=== PATIENT | male | born 1960 | race Asian ===

== ENCOUNTER 2017-08-22 06:00 | Day surgery (SDC) | payer MEDICAID ==
[~2017-08-22] VITALS: Ht 172.7 cm; Wt 90.3 kg
[~2017-08-22 06:00] MED LIST: AMLO5TAB4 PO; IBUP-2030 PO; LOSA50TA20 PO
[2017-08-22] MEDS ORDERED: LACTATED RINGERS 1,000 ML IV SCH (08:00)
[2017-08-22] MEDS ORDERED: BUPIVACAINE HCL/EPINEPHRINE/PF 0.5%/0.0005 10ML ONE (09:14)
[2017-08-22] MEDS ORDERED: MORPHINE SULFATE/PF 1MG/ML 10ML AMP ONE (09:14)
[2017-08-22] MEDS ORDERED: BUPIVACAINE HCL/PF 0.5% (5MG/ML) 10ML ONE (09:34)
[2017-08-22] MEDS ORDERED: FENTANYL CITRATE/PF 50MCG/ML 2ML VIAL ONE (09:47)
[2017-08-22] MEDS ORDERED: GLYCOPYRROLATE 0.2 MG/ML 2ML VIAL ONE (09:47)
[2017-08-22] MEDS ORDERED: NEOSTIGMINE METHYLSULFATE 1MG/ML 10 ML VIAL ONE (09:47)
[2017-08-22] MEDS ORDERED: PROPOFOL 200MG/20ML VIAL IV ONE (09:47)
[2017-08-22] MEDS ORDERED: MIDAZOLAM HCL 2 MG/2 ML VIAL ONE (09:47)
[2017-08-22] MEDS ORDERED: ROCURONIUM BROMIDE 10MG/ML VIAL 5ML IV ONE (09:47)
[2017-08-22] MEDS ORDERED: METOCLOPRAMIDE HCL 10MG/2ML VIAL ONE (11:07)
[2017-08-22] MEDS ORDERED: LIDOCAINE HCL/PF 1% 10 MG/ML 5ML VIAL ONE (11:07)
[2017-08-22] MEDS ORDERED: DEXAMETHASONE 4MG/ML 1ML VIAL ONE (11:07)
[2017-08-22] MEDS ORDERED: SUCCINYLCHOLINE CHLORIDE 200MG/10ML VIAL IV ONE (11:07)
[2017-08-22] MEDS ORDERED: ONDANSETRON HCL 4MG/2ML VIAL ONE (11:07)
[2017-08-22] MEDS ORDERED: SODIUM CHLORIDE 0.9% 10ML VIAL ONE (11:07)
[2017-08-22] MEDS ORDERED: SODIUM CHLORIDE 0.9% 1,000 ML IV SCH (12:12)
[2017-08-22] MEDS ORDERED: ONDANSETRON HCL 4MG/2ML VIAL IV PRN (12:15)
[2017-08-22] MEDS ORDERED: MEPERIDINE HCL/PF 25MG/ML CPJ IV PRN (12:15)
[2017-08-22] MEDS ORDERED: HYDROCODONE/ACETAMINOPHEN 10/325MG TABLET PO PRN (12:30)
[2017-08-22] MEDS: HYDROMORPHONE HCL/PF 2MG/ML CPJ IV PRN ×2 (12:35→12:41)
[2017-08-22 12:41] VITALS: BP 111/68
== END 2017-08-22 15:00 | disposition home or self-care (01) ==
LOC: OR 06:00
PROVIDERS: ATTEND Orthopaedic Surgery
DX: M23.222 Derangement of posterior horn of medial meniscus due to old tear or injury, left knee (principal); M94.262 Chondromalacia, left knee; M22.42 Chondromalacia patellae, left knee; I10 Essential (primary) hypertension; I45.19 Other right bundle-branch block; E66.3 Overweight; Z79.1 Long term (current) use of non-steroidal anti-inflammatories (NSAID); Z88.0 Allergy status to penicillin; Z79.899 Other long term (current) drug therapy
CPT/HCPCS: 29881; 88304; 88311; 97116; 97161; A4216; J0171; J0330; J1100; J1170; J2250; J2405; J2765; J3010; J3490; J7120; L1830; J2274; J2704; J2710